=== PATIENT | female | born 1995 | race Caucasian/White ===

== ENCOUNTER 2024-03-02 10:41 | Outpatient (CLI) | payer OTHER | END 2024-03-02 10:42 | disposition home or self-care (01) | LOC: CSHCT 10:41 | PROVIDERS: ATTEND Emergency Medicine | DX: R10.9 Unspecified abdominal pain (principal); N94.9 Unspecified condition associated with female genital organs and menstrual cycle; Z97.5 Presence of (intrauterine) contraceptive device; N20.0 Calculus of kidney | CPT/HCPCS: 74176 ==